=== PATIENT | female | born 1995 | race Caucasian/White ===

== ENCOUNTER 2017-09-11 06:13 | Emergency (ER) | payer BC ==
[~2017-09-11] VITALS: Ht 149.9 cm; Wt 64.2 kg
[2017-09-11] MEDS ORDERED: hydrOXyzine 50MG TABLET ONE (06:47)
[2017-09-11] MEDS ORDERED: FAMOTIDINE 20 MG TABLET ONE (06:47)
[2017-09-11] MEDS ORDERED: FAMOTIDINE 20 MG TABLET PO ONE (07:00)
[2017-09-11 08:01] VITALS: BP 129/75
== END 2017-09-11 08:03 | disposition home or self-care (01) ==
LOC: ED 07:58
DX: L50.9 Urticaria, unspecified (principal); T78.40XA Allergy, unspecified, initial encounter
CPT/HCPCS: 99284; J7512; Q0177

== ENCOUNTER 2020-05-07 19:09 | Emergency (ER) | payer BC, MEDICAID ==
[~2020-05-07] VITALS: Ht 149.9 cm; Wt 65.3 kg
[2020-05-07 19:17] VITALS: BP 138/91
--- NOTE | 2020-05-07 19:32 | NUR ---
URINE SENT TO LAB AT THIS TIME
[2020-05-07 19:47] LABS: HCG UR SG 1.012 (1.003-1.030); MICROSCOPIC AUTO
--- NOTE | 2020-05-07 19:51 | NUR ---
PT TO US AT THIS TIME
--- NOTE | 2020-05-07 20:15 | NUR ---
PT BACK FROM US AT THIS TIME
[2020-05-07] MEDS ORDERED: HYDROcodone/APAP 5/325 TABLET ONE (20:34)
--- NOTE | 2020-05-07 20:38 | NUR ---
PT REQ PAIN MEDS, NELLI UPDATED ORDERS RECIEVED. PT MEDICATED PER MAR FOR PAIN TOLERATED WELL
--- NOTE | 2020-05-07 20:59 | NUR ---
LAB AT BEDSIDE AT THIS TIME
[2020-05-07] MEDS ORDERED: HYDROcodone/APAP 5/325 TABLET PO ONE (21:00)
[2020-05-07 21:21] LABS: BASOPHILS % (AUTO) 1 % (0-1); EOSINOPHILS % (AUTO) 1 % (1-7); LYMPHOCYTES % (AUTO) 36 % (22-44); MEAN CORPUSCULAR HEMOGLOBIN 32.5 pg (27.0-34.8); MEAN PLATELET VOLUME 7.7 fL (7.4-10.4); MONOCYTES % (AUTO) 5 % (2-9); NEUTROPHILS % (AUTO) 57 % (42-75); PLATELET COUNT 370 x10^3/uL (130-400); RED BLOOD COUNT 4.55 x10^6/uL (3.82-5.3)
--- NOTE | 2020-05-07 21:21 | NUR ---
DR DEL RIO AT BEDSIDE FOR RECHECK
[2020-05-07 21:30] LABS: MD NO
[2020-05-07 21:31] LABS: ALANINE AMINOTRANSFERASE 31 U/L (12-78); ALBUMIN 4.2 g/dL (3.4-5.0); ANION GAP 5 mmol/L (5-15); CALCIUM 9.4 mg/dL (8.5-10.1); CHLORIDE 111 mmol/L (98-107); CREATININE 0.83 mg/dL (0.55-1.02)
[2020-05-07 21:36] LABS: ALKALINE PHOSPHATASE 36 U/L (45-117); BILIRUBIN,TOTAL 0.4 mg/dL (0.2-1.0); TOTAL PROTEIN 7.6 g/dL (6.4-8.2)
--- NOTE | 2020-05-07 21:39 | NUR ---
CT CALLED ABOUT NEW ORDERS SAY THEY WILL BE OVER SOON TO GET PT
--- NOTE | 2020-05-07 21:47 | NUR ---
PT TO CT AT THIS TIME
== END 2020-05-07 20:52 ==
LOC: ED 20:51
DX: N20.0 Calculus of kidney (principal); N23 Unspecified renal colic; N39.0 Urinary tract infection, site not specified; R11.10 Vomiting, unspecified
CPT/HCPCS: 36415; 74176; 76830; 80053; 81001; 81025; 84703; 85025; 87086; 99285

== ENCOUNTER 2020-05-08 05:51 | Emergency (ER) | payer MEDICAID ==
[~2020-05-08] VITALS: Ht 149.9 cm; Wt 63.0 kg
--- NOTE | 2020-05-08 06:05 | NUR ---
Note anne in EDM - 05/08/20 at 0649 by [email or web address] PT DC'D TO MOM WITH WRITTEN AND VERBAL INSTRUCTIONS. PT ASLEEP WITH MOM. PT WITH NON-LABORED BREATHING. NO ACCESSORY MUSCLE USE. PT WITH STABLE VS. PT PWD. PT ON RA. DC INSTRUCTIONS GONE OVER WITH MOM WITH UNDERSTANDING STATED. PT OUT OF ER WITH MOM IN STABLE CONDITION.
[2020-05-08] MEDS ORDERED: KETOROLAC 60 MG/2 ML ONE (06:07)
[2020-05-08] MEDS ORDERED: ONDANSETRON ODT 4 MG ONE (06:07)
[2020-05-08] MEDS ORDERED: HYDROcodone/APAP 5/325 TABLET ONE (06:08)
--- NOTE | 2020-05-08 06:20 | NUR ---
PT MEDICATED PER MAR, PT VERY TEARFUL. EDUCATED ON POC. REQUEST CATH UA NOT BE DONE UNTIL PAIN MEDICATION IS WORKING. PT PLACED IN POSITION OF SOME COMFORT AND PROVIDED CALL LIGHT.
--- NOTE | 2020-05-08 06:21 | NUR ---
US AT BEDSIDE, PT ALSO REQUESTS THIS NOT BE DONE RIGHT NOW
[2020-05-08] MEDS ORDERED: KETOROLAC 30 MG/1 ML IM ONE (06:30)
[2020-05-08] MEDS ORDERED: HYDROcodone/APAP 5/325 TABLET PO ONE (06:30)
[2020-05-08] MEDS ORDERED: ONDANSETRON ODT 4 MG PO ONE (06:30)
[2020-05-08 06:39] LABS: BASOPHILS % (AUTO) 0 % (0-1); EOSINOPHILS % (AUTO) 0 % (1-7); LYMPHOCYTES % (AUTO) 13 % (22-44); MEAN CORPUSCULAR HEMOGLOBIN 31.7 pg (27.0-34.8); MEAN CORPUSCULAR HGB CONC 34.4 g/dL (32.4-35.8); MEAN PLATELET VOLUME 7.6 fL (7.4-10.4); MONOCYTES % (AUTO) 5 % (2-9); NEUTROPHILS % (AUTO) 81 % (42-75); PLATELET COUNT 340 x10^3/uL (130-400); RED BLOOD COUNT 4.47 x10^6/uL (3.82-5.3); RED CELL DISTRIBUTION WIDTH 12.6 % (9.6-15.2)
[2020-05-08 06:43] LABS: MD NO
[2020-05-08 06:53] LABS: ANION GAP 7 mmol/L (5-15); CALCIUM 8.8 mg/dL (8.5-10.1); CHLORIDE 110 mmol/L (98-107)
[2020-05-08 07:04] LABS: ALANINE AMINOTRANSFERASE 28 U/L (12-78); ALKALINE PHOSPHATASE 31 U/L (45-117); BILIRUBIN,TOTAL 0.9 mg/dL (0.2-1.0); CREATININE 1.05 mg/dL (0.55-1.02)
--- NOTE | 2020-05-08 07:06 | NUR ---
STRAIGHT CATH PERFORMED. 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 UA SENT TO LAB. US AT BEDSIDE. PAIN IS MANAGED.
[2020-05-08 07:35] LABS: MICROSCOPIC INDICATED
[2020-05-08 09:07] VITALS: BP 118/78
--- NOTE | 2020-05-08 09:07 | NUR ---
Patient/Caregiver given discharge instructions and they have confirmed that they understand the instructions. Patient ambulatory with steady gait.
== END 2020-05-08 09:11 | disposition home or self-care (01) ==
LOC: ED 06:17
DX: N20.1 Calculus of ureter (principal); N23 Unspecified renal colic; R11.2 Nausea with vomiting, unspecified; Z88.2 Allergy status to sulfonamides; Z90.89 Acquired absence of other organs
CPT/HCPCS: 36415; 51701; 76770; 80053; 81001; 84703; 85025; 87086; 96372; 99284; J1885; Q0162; P9612